=== PATIENT | female | born 1950 | race Asian ===

== ENCOUNTER 2022-10-24 20:38 | Emergency (ER) | payer OTHER ==
[~2022-10-24] VITALS: Ht 154.9 cm; Wt 63.6 kg
[2022-10-24] MEDS ORDERED: PRED-554 PO (21:50)
[2022-10-24] MEDS ORDERED: HYDR28.35 TP (21:50)
[2022-10-24 22:00] VITALS: BP 132/77
== END 2022-10-24 22:00 | disposition home or self-care (01) ==
LOC: EMS 20:38
DX: L25.9 Unspecified contact dermatitis, unspecified cause (principal)
CPT/HCPCS: 99283; Z7502